=== PATIENT | male | born 1950 | race Caucasian/White ===

== ENCOUNTER 2017-08-27 19:41 | Inpatient (IN) | payer MEDICARE, OTHER ==
[2017-08-27 20:05] LABS: #Basophils 0.1 thou/uL (0.0-0.2); #Eosinphils 0.6 thou/uL (0.0-0.7); #Lymphocytes 1.6 thou/uL (1.20-3.40); #Monocytes 0.9 thou/uL (0.11-0.59); #Neutrophils 7.2 thou/uL (1.40-6.50); %Eosinophils 5.3 % (0.0-10.0); %Lymphocytes 15.4 % (21.0-51.0); %Monocytes 8.7 % (0.0-10.0); %Neutrophils 69.6 % (42.0-75.0); Hemoglobin 15.6 g/dL (14.0-18.0); Mean Corpuscular HGB CONC 33.4 g/dL (32.0-36.0); Mean Corpuscular Hemoglobin 33.8 pg (27.0-31.0); Mean Platelet Volume 6.8 fL (7.4-10.4); Platelet Count 294 thou/uL (130-400); RBC Distribution Width 12.5 % (11.5-14.5); Red Blood Cell (RBC) Count 4.61 mill/uL (4.70-6.10); White Blood Cell (WBC) Count 10.3 thou/uL (4.8-10.8)
[2017-08-27 20:10] LABS: INR-International Normal Ratio 0.9; PTT 25.8 SEC (22.9-36.1); Prothrombin Time 12.1 SEC (12.0-14.7)
[2017-08-27 20:45] LABS: ALT (SGPT) 28 U/L (8-55); AST (SGOT) 25 U/L (5-34); Albumin 4.2 g/dL (3.4-4.8); Alkaline Phosphatase 92 U/L (40-150); Anion Gap 15 mmol/L (10-20); BUN (Urea Nitrogen) 8 mg/dL (8.4-25.7); Bilirubin, Total 0.3 mg/dL (0.2-1.2); Calc. Creatinine Clearance 0 mL/min (70-130); Calcium 9.2 mg/dL (7.8-10.44); Carbon Dioxide 25 mmol/L (23-31); Chloride 99 mmol/L (98-107); Estimated GFR-MDRD Greater than 90; Globulin 3.2 g/dL (2.4-3.5); Glucose 105 mg/dL (80-115); Potassium 4.1 mmol/L (3.5-5.1); Protein, Total 7.4 g/dL (5.8-8.1); Sodium 135 mmol/L (136-145)
[2017-08-27] MEDS ORDERED: Oxymetazoline HCl 0.05% ( 15 ML ) ONE (20:52)
[2017-08-27] MEDS ORDERED: Lidocaine 1% w/Epinephrine 1:100K 20 ML VIAL ONE (20:53)
[2017-08-27] MEDS ORDERED: cloNIDine 0.1 MG TAB ONE ×2 (21:30→22:42)
[2017-08-27] MEDS ORDERED: niCARdipine 20MG In NaCl 20 MG/200 ML BAG ONE (23:57)
[2017-08-28] MEDS ORDERED: Mag-Al 1200 mg/1200 mg/30 ML UDCUP PO PRN (01:39)
[2017-08-28] MEDS ORDERED: Ondansetron ODT 4 MG TAB SL PRN (01:39)
[2017-08-28] MEDS ORDERED: Acetaminophen 325 MG TAB PO PRN (01:39)
[2017-08-28] MEDS ORDERED: Ondansetron PF 4 MG/2 ML Vial IVP PRN (01:39)
[2017-08-28] MEDS ORDERED: niCARdipine HCl 25 MG in Sodium Chloride 0.9% 250 ML 240 ML IVPB PRN (01:41)
--- NOTE | 2017-08-28 02:12 | HP ---
PRIMARY CARE PHYSICIAN: Dr. Sultana Chase. CHIEF COMPLAINT: Nosebleed and elevated blood pressure. HISTORY OF PRESENT ILLNESS: Mr. Keyes is a pleasant [id number] that has a history of hyp ertension as well as chronic respiratory failure with hypoxemia secondary to chronic obstructive pulm onary disease. He was in his usual state of health until yesterday when he noticed some nose bleedin g, which he said was pretty light, then after dinner, he said he began to walk around and do few thin gs and then it just basically started gushing out. He also says that he has been having difficulty r egulating his blood pressure. His says that his blood pressure runs anywhere from about 140 to 160 systolic and the diastolic has been over 100 and his primary care physician recently started him on losartan to help his blood pressure, but it appears that this has not been working. When he came to the emergency room, he was noted to have a blood pressure of approximately 166/111 and he also had to have his nose pack in order to stop the bleeding. He has been placed on a Cardene drip and short ly after being started on the Cardene drip, his nosebleed actually stopped. He denies having any hillary st pain. He says he has occasional chest tightness, which he attributes to COPD. He has felt a navya le bit dizzy, but no lightheadedness and he does complain of some sinus congestion and some sneezing off and on and he does use oxygen at home. REVIEW OF SYSTEMS: Constitutional: He has had no fevers, no chills, no night sweats, no weight loss . HEENT: No headaches. He has had occasionally dizziness, but no visual changes, no sore throat, r hinorrhea, neck pain, no adenopathy. Pulmonary: No hemoptysis, no cough, no wheezing, but he is alan y dependent on getting his DuoNebs. He says he basically has to use them around the clock every 4 ho urs or so. Cardiovascular: He has had some occasional chest tightness, but no PND, no orthopnea, no lower extremity edema. Gastrointestinal: No abdominal pain, no nausea, no vomiting, no change in b owels. Genitourinary: No urinary frequency, hematuria, no hesitancy. Neurologic: No focal weaknes s, numbness, no seizures. Psychiatric: No symptoms of anxiety or depression. Skin and integument: No skin changes. No rash. PAST MEDICAL HISTORY: Significant for hypertension, asthma, chronic respiratory failure secondary to chronic obstructive pulmonary disease. He is steroids as well as oxygen dependent. He uses 2 liter s at home. PAST SURGICAL HISTORY: He has had an anterior cervical diskectomy at the C4-C5, C5-C6 level. He has also had a hernia repair as well as a hemorrhoid surgery. SOCIAL HISTORY: He smokes about 1-2 cigarettes daily. He drinks about 16 ounces of beer occasionall y as well as occasional Bourbons. He is and he wishes to be a FULL CODE. ALLERGIES: To SINGULAIR. FAMILY HISTORY: Significant for cerebral vascular disease. CURRENT MEDICATIONS: Include losartan 50 mg daily, DuoNebs, aspirin 325 mg a day, and prednisone 5 m g daily. PHYSICAL EXAMINATION: GENERAL: He is alert and oriented. He appears to be in no acute distress. VITAL SIGNS: Blood pressure initially was 168/111, heart rate 129, respiratory rate of 18, temperatu re is 98.6. HEENT: His pupils are equal, round, and reactive. Extraocular muscles are intact. Sclerae are anic teric. Throat, no erythema, no exudates. Nose, the right nostril was packed. NECK: There is no adenopathy, no bruits. LUNGS: Lungs are clear to auscultation. There is no wheezing, no rales. CARDIOVASCULAR: He has a normal S1, S2. I did not appreciate an S3 or S4. No murmurs, clicks, no r ubs. ABDOMEN: Soft. It is nontender, nondistended. Positive for bowel sounds. No rebound or guarding. EXTREMITIES: There is no edema. He does have some chronic venous stasis changes. NEUROLOGIC: The exam is nonfocal. LABORATORY RESULTS: White blood cell count 10.3, hemoglobin 15.6, hematocrit is 46.6, platelet count is 294,000. Sodium 135, potassium 4.1, chloride is 99, CO2 is 25, BUN of 8, creatinine 0.77, glucos e is 105. INR is 0.9. ASSESSMENT AND PLAN: This is a pleasant 67-year-old gentleman that presents to the emergency room wi th epistaxis, which was difficult to control. He also had an elevated blood pressure. It is possibl e that the hypertension could have possibly caused or exacerbated the epistaxis. Given that, the epi staxis could be the result of the blood pressure, he is being admitted to the ICU for hypertensive ur gency. He has been placed on a Cardene drip. We will continue the Cardene drip as well as losartan, his usual antihypertensive and add amlodipine. Hopefully, he can be transitioned off of the Cardene drip by later this morning. Hemostasis seems to be achieved with regards to the nosebleed and if th is is continued, then hopefully the packing can be removed, later on should the bleeding restart, the n ENT evaluation would be warranted. With regards to the chronic respiratory failure due to chronic obstructive pulmonary disease, we will continue oxygen as tolerated, i.e. since his nose was packed and DuoNebs q.4 hours as needed as well as scheduled q.6 hours. Continue his prednisone. We will hold off on DVT prophylaxis given the nos ebleed and place him on GI prophylaxis given the long-term prednisone use.
[2017-08-28 02:45] VITALS: BMI 21.7
[2017-08-28 04:44] LABS: #Eosinphils 0.4 thou/uL (0.0-0.7); #Lymphocytes 1.7 thou/uL (1.20-3.40); #Monocytes 1.1 thou/uL (0.11-0.59); #Neutrophils 8.8 thou/uL (1.40-6.50); %Basophils 0.2 % (0.0-1.0); %Eosinophils 3.1 % (0.0-10.0); %Monocytes 9.3 % (0.0-10.0); %Neutrophils 73.5 % (42.0-75.0); Hemoglobin 13.7 g/dL (14.0-18.0); Mean Corpuscular HGB CONC 33.6 g/dL (32.0-36.0); Mean Corpuscular Hemoglobin 33.9 pg (27.0-31.0); Mean Platelet Volume 6.6 fL (7.4-10.4); Platelet Count 261 thou/uL (130-400); RBC Distribution Width 12.3 % (11.5-14.5); Red Blood Cell (RBC) Count 4.04 mill/uL (4.70-6.10)
[2017-08-28 04:55] LABS: Anion Gap 11 mmol/L (10-20); BUN (Urea Nitrogen) 10 mg/dL (8.4-25.7); Calc. Creatinine Clearance 104 mL/min (70-130); Calcium 8.4 mg/dL (7.8-10.44); Carbon Dioxide 25 mmol/L (23-31); Chloride 95 mmol/L (98-107); Estimated GFR-MDRD Greater than 90; Glucose 104 mg/dL (80-115); Potassium 3.8 mmol/L (3.5-5.1); Sodium 127 mmol/L (136-145)
[2017-08-28] MEDS: Famotidine 20 MG TAB PO SCH ×2 (08:55→19:59)
[2017-08-28] MEDS: Amlodipine 5 MG TAB PO SCH (08:55)
[2017-08-28] MEDS: predniSONE 5 MG TAB PO SCH (08:55)
[2017-08-28] MEDS: Losartan 25 MG TAB PO SCH (08:56)
[2017-08-28] MEDS: Nicotine 14 MG PATCH TD SCH (08:56)
[2017-08-28] MEDS ORDERED: FLU VACC TS2017-18 (>65YR) 0.5 ML SYRINGE IM ONE (09:00)
[2017-08-28] MEDS ORDERED: Oxymetazoline HCl 0.05% ( 15 ML ) ONE (10:50)
[2017-08-28] MEDS ORDERED: Oxymetazoline HCl 0.05% ( 15 ML ) NASAL PRN (12:07)
--- NOTE | 2017-08-28 17:22 | CON ---
DATE OF CONSULTATION: 08/28/2017 HISTORY OF PRESENT ILLNESS: Mr. Keyes is a very pleasant 67-year-old male. He had been having nos ebleeds several days prior to presenting to the hospital. He also has a long history of hypertension. He says he has purchased 3 separate blood pressure cuffs because the first cuff was reading high, he thought maybe it was working correctly. Every one of hi s blood pressure cuffs has been reading extremely high. He finally saw a physician now at [facility] who started him on losartan. He presented here with hypertension and epistaxis. He started on a Cardene drip. He subsequently has been weaned off Cardene. PAST MEDICAL HISTORY: Remarkable for, 1. COPD and asthma. 2. Hypertension. 3. Oxygen dependence and chronic steroid use. 4. History of anterior cervical diskectomy. 5. History of herniorrhaphy. 6. History of hemorrhoidectomy. SOCIAL HISTORY: He is down to 1-2 cigarettes a day. He drinks on a daily basis. He does not use drugs. ALLERGIES: He reports intolerance to Singulair. FAMILY HISTORY: Positive for vascular disease. Negative for lung disease at an early age. REVIEW OF SYSTEMS: Ten-point is otherwise negative. He has stable pattern of dyspnea on exertion. His main complaints surround this admission with the epistaxis. His nose has been cauterized. PHYSICAL EXAMINATION: GENERAL: He is a very pleasant gentleman in no distress. VITAL SIGNS: BP 130/82, off Cardene, his heart rate is 99, respiratory rate in the 20s, oximetry is 96 on 2 liters a minute. HEENT: Pupils are equal. Sclerae is anicteric. NECK: Supple. No lymphadenopathy. LUNGS: Clear. HEART: Regular rhythm. S1 and S2 are normal, as an S4. There is a grade 2/6 systolic murmur. ABDOMEN: Soft and nontender. EXTREMITIES: Without asymmetry or edema. His feet are warm. LABORATORY DATA: White count 12.9, hemoglobin 13.7, platelets 261. Sodium 127, potassium 3.8, chloride 95, bicarbonate 25, BUN 10, creatinine 0.65. Coags were normal. There is no chest radiograph or any radiographs to review. IMPRESSION: 1. Epistaxis. 2. Poorly controlled hypertension. Calcium blockers has been added, may be that the Norvasc could b e increased and losartan stopped at some point, but this is an outpatient issue. He is stable to mov e out of the Critical Care Unit in my opinion. This is a 70-minute consult with greater than 50% of the time was spent on coordinating care, also sp ent a great deal of time talking to his who is very actually quite knowledgeable about hypertens ion, but was unable to convince him that his blood pressure readings were real at home.
--- NOTE | 2017-08-28 17:38 | PDOC.EVN ---
Event Note - Event Note Event Note: Chart reviewed, pt seen. Will follow.
[2017-08-28] MEDS ORDERED: hydrALAZINE 20 MG/ML VIAL SLOW IVP PRN (21:13)
[2017-08-28] MEDS ORDERED: Temazepam 15 MG CAP PO PRN (21:14)
[2017-08-29] MEDS: predniSONE 5 MG TAB PO SCH (08:03)
[2017-08-29] MEDS: Famotidine 20 MG TAB PO SCH (08:03)
[2017-08-29] MEDS ORDERED: ALPRAZolam 0.25 MG TAB PO PRN (08:03)
[2017-08-29] MEDS: Amlodipine 5 MG TAB PO SCH (08:03)
[2017-08-29] MEDS: Losartan 25 MG TAB PO SCH (08:04)
[2017-08-29] MEDS: Nicotine 14 MG PATCH TD SCH (08:04)
[2017-08-29] MEDS ORDERED: predniSONE 20 MG TAB PO SCH ×2 (09:45→10:00)
[2017-08-29] MEDS ORDERED: predniSONE 5 MG TAB PO SCH (10:00)
[2017-08-29] MEDS ORDERED: Azithromycin 250 MG TAB PO SCH (12:00)
[2017-08-29 12:36] VITALS: BP 165/91; TEMP 97.4
--- NOTE | 2017-08-29 15:07 | DIS ---
DATE OF ADMISSION: 08/28/2017 DATE OF DISCHARGE: 08/29/2017 PRIMARY CARE PHYSICIAN: Dr. Sultana Chase. DISCHARGE DIAGNOSES: 1. Hypertensive urgency. 2. Epistaxis. 3. Chronic obstructive pulmonary disease exacerbation. CONSULTATIONS DURING THIS HOSPITALIZATION: Pulmonary and Critical Care Medicine , Dr. Roger Keebde and ENT, Dr. Roger Spaulding. CONDITION OF PATIENT AT THE TIME OF DISCHARGE: I assesses Mr Keyes on the day of discharge. He had a recurrence of epistaxis. Vital signs are stable. S1, S2, regular. Wheezing+. HOSPITAL COURSE: Mr. Keyes is a pleasant 67-year-old gentleman who was admitted to [facility] on 08/28/2017 for hypertensive urgency as well as epistaxis. He had a nose pack in the right nostril. He was also started on Cardene drip and admitted to the critical care unit. He was seen by Pulmonary and ENT services. He showed good response to Cardene drip, with improvement in his blood pressure. He was started on amlodipine. He had the nose packing removed and cauterization by ENT service on 04/27/2018. He was found to be wheezing and had developed cough with yellow colored sputum. He was started on antibiotics, steroids and bronchodilators. He was advised to continue oxygen as needed. He had a recurrence of epistaxis on 08/29/2017. ENT service was contacted. They advised that they would be able to see him in the office the same day. He is being discharged home in a stable condition to follow up with ENT Service. On the day of discharge, he has a white count of 12,000, hemoglobin 13.7, platelet count 261,000. Sodium 127, potassium 3.8, and creatinine 0.65. He is advised to follow up with his primary care provider's office in 3-5 days and have his electrolytes and hemoglobin checked. DISCHARGE MEDICATIONS: Include DuoNeb as needed, amlodipine 5 mg daily, Z-HAYDE, Cozaar 50 mg daily, Medrol Dosepak and a Nicoderm CQ 14 mg daily. Many thanks for allowing me to participate in your patient's care. Please feel free to contact me with any questions or concerns. DISCHARGE DESTINATION: Home. TOTAL AMOUNT OF TIME SPENT COORDINATING THIS DISCHARGE: 19 minutes. ARMIN
[2017-08-30] MEDS ORDERED: predniSONE 50 MG TAB PO SCH (08:00)
[2017-08-30] MEDS ORDERED: Azithromycin 250 MG TAB PO SCH (09:00)
--- NOTE | 2017-08-30 18:04 | EKG ---
Test Reason : Blood Pressure : / mmHG Vent. Rate : 103 BPM Atrial Rate : 103 BPM P-R Int : 116 ms QRS Dur : 084 ms QT Int : 336 ms P-R-T Axes : 074 042 032 degrees QTc Int : 440 ms Sinus tachycardia Possible Left atrial enlargement Left ventricular hypertrophy Abnormal ECG Confirmed by CLAUDIA RICHARDSON, PABLITO ([id number]), technical writer and editor ALYCIA JEAN-BAPTISTE ([id number]) on 08/30/2017 6:03:42 PM Referred By: Confirmed By:PABLITO TAYLOR MD
== END 2017-08-29 12:42 | disposition home or self-care (01) | DRG 264 ==
LOC: ERS 19:41 → CCU 08-28 01:36 → T4-B 08-28 15:23
PROVIDERS: ADMIT Internal Medicine; ATTEND Internal Medicine
PROC: 0W3Q8ZZ Control Bleeding in Respiratory Tract, Via Natural or Artificial Opening Endoscopic (ICD-10-PCS; principal; 2017-08-28)
PROC: 2Y41X5Z Packing of Nasal Region using Packing Material (ICD-10-PCS; 2017-08-28)
DX: I16.0 Hypertensive urgency (principal); J96.11 Chronic respiratory failure with hypoxia; Z99.81 Dependence on supplemental oxygen; J44.1 Chronic obstructive pulmonary disease with (acute) exacerbation; R04.0 Epistaxis; F17.210 Nicotine dependence, cigarettes, uncomplicated; Z88.8 Allergy status to other drugs, medicaments and biological substances; Z79.82 Long term (current) use of aspirin; Z79.52 Long term (current) use of systemic steroids; Z79.899 Other long term (current) drug therapy
CPT/HCPCS: 36415; 80048; 80053; 85025; 85610; 85730; 86850; 86900; 86901; 90471; 90682; 93005; 94640; 96365; G0008; J0360; J2001; J7050; J7506; J7620; Q2036

== ENCOUNTER 2020-10-07 05:26 | Emergency (ER) | payer MEDICARE ==
[~2020-10-07 05:26] MED LIST: Atropine Sulfate 1 mg/10 ml Syringe ONE; EPINEPHrine 1 MG/10 ML Abboject SYRINGE ONE
[2020-10-07] MEDS ORDERED: Fentanyl CADD 100 ML IV SCH (05:45)
[2020-10-07 05:56] LABS: Actual Bicarbonate (HCO3a) 21.2 mEq/L (22-28); Analyzer IN Cardio ER; Base Excess (BEa) -7.2 mEq/L (-2.0 to +3.0); CO2 Tension 53.7 mmHg (35.0-45.0); Calcium, Ionized (arterial) 1.19 mmol/L (1.12-1.30); Carboxyhemoglobin (COHb) 0.5 gm% (0.0-3.0); Hemoglobin (Hb) 15.4 g/dL (14.0-18.0); O2 Tension (PaO2), arterial 81.2 mmHg (> 70.0)
[2020-10-07 05:57] LABS: Puncture Site LBA; pH, Arterial 7.21 (7.35-7.45)
[2020-10-07 05:58] LABS: ALV-art Gradient 208.175 mmHg (0-20)
[2020-10-07] MEDS ORDERED: Albuterol Sulfate 2.5 mg/3 ml Neb ONE (06:21)
[2020-10-07 06:32] LABS: Hemoglobin 14.3 g/dL (14.0-18.0); Mean Corpuscular HGB CONC 32.7 g/dL (32.0-36.0); Mean Corpuscular Hemoglobin 33.9 pg (27.0-31.0); Mean Platelet Volume 7.5 fL (7.4-10.4); Platelet Count 267 thou/uL (130-400); RBC Distribution Width 12.3 % (11.5-14.5); Red Blood Cell (RBC) Count 4.22 mill/uL (4.70-6.10); White Blood Cell (WBC) Count 21.1 thou/uL (4.8-10.8)
[2020-10-07] MEDS ORDERED: Cefepime 2 GM VIAL ONE (06:39)
[2020-10-07] MEDS ORDERED: Vancomycin 1 GM/200 ML BAG ONE (06:39)
[2020-10-07 06:40] LABS: Prothrombin Time 12.9 sec (12.0-14.7)
[2020-10-07 06:42] LABS: PTT 21.6 sec (22.9-36.1)
[2020-10-07 06:44] LABS: Band 2 % (5-11); Lymphocytes 17 % (21-51); MDiff Complete? YES; Macrocytosis SLIGHT = 6-15 cells (100X) (0-5/hpf); Monocytes 4 % (0-10); Neutrophil 77 % (42-75); Platelet Morphology Comment Appears Adequate; RBC Morphology Normal
[2020-10-07] MEDS ORDERED: Ketamine 50 MG/ML (10ML VIAL) ONE (06:54)
[2020-10-07 06:59] LABS: ALT (SGPT) 40 U/L (8-55); AST (SGOT) 35 U/L (5-34); Albumin 3.6 g/dL (3.4-4.8); Alkaline Phosphatase 70 U/L (40-110); Anion Gap 11 mmol/L (10-20); BUN (Urea Nitrogen) 14 mg/dL (8.4-25.7); Bilirubin, Total 0.3 mg/dL (0.2-1.2); CK (CPK) 143 U/L (30-200); Calc. Creatinine Clearance 0 mL/min (70-130); Calcium 7.7 mg/dL (7.8-10.44); Carbon Dioxide 26 mmol/L (23-31); Chloride 96 mmol/L (98-107); Globulin 2.4 g/dL (2.4-3.5); Glucose 195 mg/dL (80-115); Magnesium 2.4 mg/dL (1.6-2.6); Potassium 4.8 mmol/L (3.5-5.1); Sodium 128 mmol/L (136-145)
[2020-10-07] MEDS ORDERED: Lorazepam 2 MG/ML VIAL ONE (07:29)
[2020-10-07 08:21] LABS: SARS-CoV-2 NAA Rapid Test Not Detected (NotDetected)
== END 2020-10-07 08:07 | disposition expired ==
LOC: ERS 05:26
DX: J96.90 Respiratory failure, unspecified, unspecified whether with hypoxia or hypercapnia (principal); I50.9 Heart failure, unspecified; J44.1 Chronic obstructive pulmonary disease with (acute) exacerbation; I11.0 Hypertensive heart disease with heart failure; F17.210 Nicotine dependence, cigarettes, uncomplicated; Z79.82 Long term (current) use of aspirin; Z79.899 Other long term (current) drug therapy
CPT/HCPCS: 0240U; 36600; 51702; 71045; 80053; 82550; 82553; 82805; 83735; 83880; 84484; 85025; 85610; 85730; 87040; 92950; 93005; 94640; 94760; 96365; 96366; 96375; 99285; J3010; 36415; 94002; J0171; J0461; J0692; J2060; J3370; J7611; J7620